=== PATIENT | male | born 1965 | race Hispanic/Latino ===

== ENCOUNTER 2020-11-30 13:10 | Emergency (ER) | payer OTHER ==
[2020-11-30] MEDS ORDERED: Ketorolac Tromethamine 30 MG/ML VIAL ONE (14:09)
[2020-11-30] MEDS ORDERED: Cyclobenzaprine 10 MG TAB ONE (14:09)
[2020-11-30 14:26] LABS: Bacteria/HPF None Seen HPF (None Seen); Bilirubin Negative (Negative); Blood, Urine Negative (Negative); Clarity Clear (Clear); Glucose, Urine (Dipstick) Normal (Negative); Ketone, Urine Negative (Negative); Leukocyte Negative Leu/uL (Negative); Nitrite Negative (Negative); Protein, Urine (Dipstick) Negative (Neg-Trace); RBC/HPF 0-3 HPF (0-3); Specific Gravity, Urine 1.013 (1.002-1.036); Squamous Epithelial None Seen HPF (0-3); Urobilinogen Normal mg/dL (Less than 2); WBC/HPF None Seen HPF (0-3); pH, Urine 7.5 (5.0-9.0)
== END 2020-11-30 15:10 ==
LOC: ERS 13:10 → EEVIPCON 13:10 → ERS 15:10
DX: M62.830 Muscle spasm of back (principal); I10 Essential (primary) hypertension; Z79.899 Other long term (current) drug therapy
CPT/HCPCS: 81001; 96372; 99283; J1885

== ENCOUNTER 2020-12-03 20:43 | Emergency (ER) | payer OTHER | END 2020-12-03 22:14 | disposition home or self-care (01) | LOC: ERS 20:43 | DX: K80.20 Calculus of gallbladder without cholecystitis without obstruction (principal); M25.551 Pain in right hip; G89.29 Other chronic pain; K21.9 Gastro-esophageal reflux disease without esophagitis; Z79.899 Other long term (current) drug therapy; I10 Essential (primary) hypertension | CPT/HCPCS: 74176 ==